=== PATIENT | female | born 1965 ===

== ENCOUNTER 2025-03-04 13:16 | Outpatient (AMB) | payer OTHER, SELFPAY ==
[2025-03-04 13:17] VITALS: BP 130/94; PULSE 79; O2SAT 97; BMI 25.4
--- NOTE | 2025-03-04 13:17 | MHC.OFFVIS ---
Vital Signs 03/04/25 13:17 Height 5 ft 6 in Weight 157 lb 10.088 oz BMI 25.4 BP 130/94 H Blood Pressure Location Lt brachial Position Sitting Pulse 79 Pulse Source Pulse Oximeter Pulse Oximetry (%) 97 Oxygen Delivery Method Room Air Intake Visit Reasons: Parathyroid nodules Intake Note: New patient present today for Parathyroid nodules. Batch Or Continuous Still Operator Required: No Accompanied by: Self / Same As Patient Allergies Sulfa (Sulfonamide Antibiotics) Allergy (Mild, Verified 03/04/25 13:23) Rash Medication List - Last Reconciled 03/04/25 by Loretta Nazario MD No Known Home Meds HPI Comments Details: 60-year-old female here today for initial evaluation of nontoxic multinodular goiter. Found about thyroid nodules on carotid artery scan In May 2024. Ultrasound thyroid: 01/03/2025 done at [facility], I do not have the images but the report notes a left inferior 0.9 X 0.8 X 0.8 cm solid isoechoic nodule with peripheral calcification that has remained stable in size compared to previous ultrasound in June 2024. A hyperechoic nodule 0.6 cm which has also remained stable in size located inferior to the right lobe noted, possibly a parathyroid lesion. Another subcentimeter 0.8 cm hyperechoic nodule located inferior to the left lobe which also may be a parathyroid. These have remained stable in size compared to ultrasound in June 2024. Labs from August 2024 showed normal TSH of 2.82, normal free T4 of 1.19. Patient currently denies heat or cold intolerance, diarrhea or constipation, hair loss, palpitation, anxiety, weight changes, mood changes, low energy, changes in appearance of eyes or vision changes, tremors, increased diaphoresis or dry skin. ? Patient denies any pain on swallowing or voice changes or difficulty breathing. Intermittent dysphagia in the setting of esophageal problems, s/p multiple dilations. Patient denies any history of childhood neck radiation. Denies having ever used lithium, amiodarone or biotin supplements. Patient denies any family history of thyroid cancer . Mother: thyroid nodules, hypothyroidism. 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 No smoking, in the past social 40 years ago Alcohol: weekend wine with dinner No drug use Physical exam General: sitting comfortably in no acute distress HEENT: normocephalic/atraumatic, Neck: supple, symmetrical, no thyromegaly , no dorsocervical or supraclavicular fat pads Cardiac: normal heart sounds Pulm: normal breath sounds B/L, no added breath sounds Abd: not distended, no tenderness Extremities: no edema, no signs of myxedema Neuro: AAO x3, Speech: normal, no facial droop, moving all 4 extremities [facility] Medical History (Updated 03/04/25 @ 13:44 by Loretta Nazario MD) Multinodular goiter (nontoxic) Family History (Updated 03/04/25 @ 13:25 by SABINA Mata) Mother Family history of thyroid problem Congestive heart failure Cancer Diabetes Father No problems noted. Social History Alcohol intake: current Alcohol intake frequency: a few times a week Patient Tobacco Use Status: Never used Tobacco Assessment & Plan Assessment & Plan (1) Multinodular goiter (nontoxic): Code(s): E04.2 - Nontoxic multinodular goiter Category: Medical Plan: 60-year-old female with no family history of thyroid cancer, with no personal history of head or neck radiation who is coming in today to establish care for nontoxic multinodular goiter. She had a carotid artery ultrasound back in May 2024 on which incidentally thyroid nodules were picked up. Ultrasound thyroid: 01/03/2025 done at [facility], I do not have the images but the report notes a left inferior 0.9 X 0.8 X 0.8 cm solid isoechoic nodule with peripheral calcification that has remained stable in size compared to previous ultrasound in June 2024. A hyperechoic nodule 0.6 cm which has also remained stable in size located inferior to the right lobe noted, possibly a parathyroid lesion. Another subcentimeter 0.8 cm hyperechoic nodule located inferior to the left lobe which also may be a parathyroid. These have remained stable in size compared to ultrasound in June 2024. Labs from August 2024 showed normal TSH of 2.82, normal free T4 of 1.19. I explained that it is common to have thyroid nodules. About 95% of the time these nodules are benign. However if the nodule is > 1 cm in size or suspicious on ultrasound then a fine need aspiration biopsy is recommended. At this time I discussed with her that based on the report none of the nodules meet criteria for biopsy. I would like her to repeat an ultrasound in 1 year in January 2026 with follow up after. We will also repeat thyroid labs at that time. Given possible parathyroid enlargement, we will also check calcium, vitamin-D levels around that time. At this point I have asked her to just start taking vitamin-D 1000 units daily. It is not uncommon to see parathyroid enlargement in vitamin-D deficiencies. Plan: -start vitamin-D 1000 units daily, any over the counter brand would do -ordered thyroid ultrasound to be done in January 2026 with follow up in February 2026 -ordered TSH with reflex free T4, calcium, albumin, vitamin-D levels to be done prior to follow up in February 2026 Plan I spent 45 minutes in reviewing the record, seeing the patient and documenting in the medical record. Orders: Orders Albumin Level 01/27/26 E04.2 - Nontoxic multinodular goiter, E55.9 - Vitamin D deficiency, unspecified Vitamin D 25-OH Total 01/27/26 E04.2 - Nontoxic multinodular goiter, E55.9 - Vitamin D deficiency, unspecified US thyroid 01/27/26 E04.2 - Nontoxic multinodular goiter TSH reflex Free T4 01/27/26 E04.2 - Nontoxic multinodular goiter, E55.9 - Vitamin D deficiency, unspecified Calcium 01/27/26 E04.2 - Nontoxic multinodular goiter, E55.9 - Vitamin D deficiency, unspecified Patient Instructions: Do ultrasound of the thyroid in January 2026, someone will call you to schedule this , please make sure it is done a few weeks prior to your next follow up with me Do blood work a few days prior to your next follow up , orders are in Follow up in February 2026 Coding Level of Care Code New Pt Level 4 (66508) Diagnoses Multinodular goiter (nontoxic) E04.2 Time Spent (min) 45
--- OUTSIDE RECORDS SUMMARY | 2025-03-04 13:58 | XMS_ITS | Clinical Summary ---
Author Organization [facility] Address [address] [place] [address] Care Team Providers Care Pipefitter Welder Name Role Phone Ilir Bey MD Primary Care Provider Medications Medication Sig Dispensed Refills Start Date End Date Status albuterol 108 (90 Base) MCG/ACT inhaler Inhale 2 puffs into the lungs every 6 (six) hours as needed for wheezing. 1 each 0 10/24/2023 Active guaiFENesin-codeine (ROBITUSSIN-AC) 100-10 MG/5ML syrup Take 5 mL by mouth 3 (three) times a day as needed for cough. 120 mL 0 10/24/2023 Active Active Problems No known active problems Social History Tobacco Use Types Packs/Day Years Used Date Smoking Tobacco: Never Assessed Sex and Gender Information Value Date Recorded Sex Assigned at Female 08/14/2020 11:09 AM EST Gender Identity Not on file Sexual Orientation Not on file Job Start Date Occupation Industry Not on file Not on file Not on file Last Filed Vital Signs Vital Sign Reading Time Taken Comments Blood Pressure 180/97 10/24/2023 4:23 PM EDT Pulse 80 10/24/2023 4:23 PM EDT Temperature 36.4 C (97.5 F) 10/24/2023 4:23 PM EDT Respiratory Rate 18 10/24/2023 4:23 PM EDT Oxygen Saturation 98% 10/24/2023 4:23 PM EDT Inhaled Oxygen Concentration - - Weight 68 kg (150 lb) 10/24/2023 4:23 PM EDT Height 167.6 cm (5' 6 ) 10/24/2023 4:23 PM EDT Body Mass Index 24.21 10/24/2023 4:23 PM EDT Plan of Treatment Health Maintenance Due Date Last Done Comments Hepatitis C Screening 1965 COVID-19 Vaccine (#1) 1963 Depression Screening 1975 Preventative Health Evaluation 1981 DTap / Tdap / Td (1 - Tdap) 1982 Cervical Cancer Screening (P ap Smear) 01/12/1984 Colon Cancer Screening (Colonoscopy) 01/12/2008 Breast Cancer Screening (Mammogram) 2013 Shingrix-Zoster Vaccine (1 of 2) 2013 Influenza Vaccine (#1) 2025 RSV Adult > 60+ Yrs or Pregn ant (1 - 1-dose 75+ series) 2038 Hepatitis B Vaccines Aged Out No long er eligible based on patient's age to complete this topic Pneumococcal Vaccine Aged Out No long er eligible based on patient's age to complete this topic RSV Ped < 20 months Aged Out No longe r eligible based on patient's age to complete this topic Care Teams Pipefitter Welder Relationship Specialty Start Date End Date Ilir Bey MD [address] [facility] [place] [address] [place], [place] [phone] PCP - General Pharmacy Technician Infusion 01/19/21
--- OUTSIDE RECORDS SUMMARY | 2025-03-04 13:58 | XMS_ITS | Referral Summary ---
Author Organization [facility] Address [address] [place] [address] Care Team Providers Care Livestock Farmer Name Role Phone Jamilah Crowley Primary Care Provider [phone] Encounters Date Type Department Care Team Description 02/22/2025 Telephone [facility] Podiatry [address] [place] [phone] Banking Representative: Adrienne Davison NP PAC- Lc-Reschedule post op 12/31/2024 1:40 PM EDT Follow-Up [facility] Podiatry [address] [place] [phone] Banking Representative: Sherman German DPM Primary localized osteoarthrosis of right ankle and foot (Primary Dx) 12/11/2024 8:40 AM EDT Follow-Up [facility] Podiatry [address] [place] [id number] Banking Representative: Sherman German DPM Ingrown toenail of right foot (Primary Dx) from Last 3 Months Allergies Active Allergy Reactions Criticality Noted Date Comments Sulfa (Sulfonamide Antibiotics) Rash 09/15 Medications benzonatate (TESSALON) 100 mg capsule 09/11/2024 Active codeine-guaiFENe sin (CHERATUSSIN AC) 20-200 mg/10 mL liquid Take 5 mL by mouth 3 times daily as needed. 10/24/2023 Active estradioL (ESTRACE) 0.01 % (0.1 mg/gram) vaginal cream 08/23/2024 Activ e fluticasone propionate (FLONASE) 50 mcg/actuation nasal spray SMARTSI [place](s) Both Nares Daily 09/12/2024 Active hydrOXYzine HCL (ATARAX) 25 mg tablet SMARTSI Tablet(s) By Mouth 3-4 Times Daily 01/20/2024 Active nitrofurantoin monohydrate/macr ocrystals (MACROBID) 100 mg capsule 02/02/2024 Active traZODone (DESYREL) 50 mg tablet 02/02/2024 Active predniSONE (DELTASONE) 10 mg tablet 01/20/2024 Active predniSONE (DELTASONE) 20 mg tablet 09/11/2024 Active Active Problems No known active problems Social History Tobacco Use Types Packs/Day Years Used Date Smoking Tobacco: Never Assessed Comments Unknown Sex and Gender Information Value Date Recorded Sex Assigned at I choose not to answer 05/2025 3:49 PM EST Legal Sex Female 10:45 AM EST Gender Identity Choose not to disclose 3:49 PM EST Sexual Orientation Choose not to disclose 2024 3:49 PM EST Plan of Treatment Upcoming Encounters Date Type Department Care Team (Latest Contact Info) Description 03/13/2025 11:00 AM EDT Appointment [facility] [address] [place] [address] [address] [place] [address] 03/20/2025 11:25 AM EDT Hospital Encounter [facility] Operating Room [address] [place] [phone] Sherman Yi DPM [address] [place], [place] [phone] 03/20/2025 11:25 AM EDT - 03/20/2025 12:50 PM EDT Surgery [facility] Operating Room [address] [place] [phone] Sherman Yi DPM [address] [place] [address] CORRECTION, HALLUX RIGIDUS, WITH CHEILECTOMY, DEBRIDEMENT, AND CAPSULAR RELEASE, WITHOUT IMPLANT [28225 (CPT )] Scheduled Procedures Name Priority Associated Diagnoses Date/Ti nd CORRECTION, HALLUX RIGIDUS, WITH CHEILECTOMY, DEBRIDEMENT, AND CAPSULAR RELEASE, WITHOUT IMPLANT Primary localized osteoarthrosis of right ankle and foot 03/20/2025 11:25 AM EDT Goals Goal Patient Goal Type Associated Problems Recent Progress Patient-Stated? Author Autogenera angelica Goal Care Plan Autogenerated Problem No Optime Background User Procedures * Due to [place] TEAM INTERVAL law, this organization might not be sharing negative HIV tests. Procedure Name Priority Date/Time Associated Diagnosis Comments SC ARTHROCENTESIS ASPIR&/INJ SMALL JT/BURSA W/O US Routine 12/31/2024 1:40 PM EDT Primary localized osteoarthrosis of right ankle and foot SC REMOVAL OF NAIL BED Routine 8:40 AM EDT Ingrown toenail of right foot from Last 3 Months Results * Due to [place] law, this organization might not be sharing negative HIV tests. * SC ARTHROCENTESIS ASPIR&/INJ SMALL JT/BURSA W/O US (12/31/2024 1:40 PM EDT) Sherman Jameson DPM - 12/31/2024 1:40 PM EDT Sherman Yi DPM 12/31/2024 1:41 PM Small Joint and Soft Tissue Injection Indication(s): Chronic osteoarthritis pain Date/Time: 12/31/2024 1:40 PM Performed by: Sherman Yi DPM Authorized by: Sherman Yi DPM Consent: Patient identity confirmed: Name and with patient and Verbally Verbal consent obtained: Yes Written consent obtained: Yes Risk and benefits discussed: Yes Written informed consent was obtained from the patient. Patient states understanding of procedure being performed: Yes Patient's understanding of procedure matches consent: Yes Rutledge Protocol: Procedure consent matches procedure scheduled: Yes All relevant documents/tests are correctly identified, labeled, and matched to patient: Yes Relevant tests/ Imaging studies available/reviewed: Yes Correct site marked: Yes Required blood products, implants, devices and special equipment available: Yes Immediately prior to the procedure a time out was called: Yes An attending physician was present for the procedure OR the procedure was performed by an Advanced Practice Provider: Yes Procedure Details: Site One: Location: foot Topical Anesthetic: ethyl chloride (cold spray) Syringe Size: 3 mL 4 mg methylPREDNISolone acetate 40 mg/mL; 10 mg triamcinolone acetonide 40 mg/mL Dressing: Band-Aid Post-procedure Details: Patient tolerance: patient tolerated the procedure well with no immediate complications Instructions: post-procedure instructions were reviewed Discharge: patient discharged from clinic in stable condition Sherman Yi DPM IN CLINIC/BEDSIDE ORDERABLES Final Result * SC REMOVAL OF NAIL BED (12/11/2024 8:40 AM EDT) Sherman Jameson DPM - 12/11/2024 8:40 AM EDT Sherman Yi DPM 12/11/2024 9:16 AM Nail Removal: R big toe Indication(s): Ingrowning with infection Date/Time: 12/11/2024 8:40 AM Performed by: Sherman Yi DPM Authorized by: Sherman Yi DPM Consent: Patient identity confirmed: Name and with patient and Verbally Verbal consent obtained: Yes Written consent obtained: Yes Risk and benefits discussed: Yes Written informed consent was obtained from the patient. Patient states understanding of procedure being performed: Yes Patient's understanding of procedure matches consent: Yes Rutledge Protocol: Procedure consent matches procedure scheduled: Yes All relevant documents/tests are correctly identified, labeled, and matched to patient: Yes Relevant tests/ Imaging studies available/reviewed: Yes Correct site marked: Yes Required blood products, implants, devices and special equipment available: Yes Immediately prior to the procedure a time out was called: Yes An attending physician was present for the procedure OR the procedure was performed by an Advanced Practice Provider: Yes Procedure Details: Location: right foot Site Prep: Betadine Topical Anesthetic: ethyl chloride (cold spray) Local Anesthetic: 3 mL lidocaine PF 1% (10 mg/mL) Hemostasis: tourniquet Amount removed: partial Side: tibial Wedge excision of skin of nail fold: no wedge excision of skin of nail fold Destruction Method: chemical matrixectomy Nail bed sutured: nail bed not sutured Nail matrix removed: partial Removed nail replaced and anchored: removed nail not replaced and anchored Estimated blood loss: minimal Dressing: bacitracin, adaptic, sterile gauze and coban. Patient tolerance: patient tolerated the procedure well with no immediate complications Post-procedure Details: Patient tolerance: patient tolerated the procedure well with no immediate complications Instructions: post-procedure instructions were reviewed Discharge: patient discharged from clinic in stable condition us Sherman Yi DPM IN CLINIC/BEDSIDE ORDERABLES Final Result from Last 3 Months Additional Health Concerns Active Problems Noted Date Diagnosed Date Autogenerated Problem 02/18/2025 Insurance Care Teams Livestock Farmer Relationship Specialty Start Date End Date Jamilah Crowley [address] [place] [address] [place] [address] PCP - General Internal Medicine 09/07/24
--- OUTSIDE RECORDS SUMMARY | 2025-03-04 13:58 | XMS_ITS | Clinical Summary ---
Author Organization [facility] and [facility] [place] Address [address] [place] [address] Phone Care Team Providers Care Operational Review Sergeant Name Role Phone Ilir Bey MD Primary Care Provider [phone] Allergies Active Allergy Reactions Criticality Noted Date Comments Sulfa (Sulfonamide Antibiotics) 10/14 Medications fluticasone propionate (FLONASE) 50 mcg/actuation nasal spray Administer 1 spray into each nostril 2 (two) times a day. Shake gently. Before first use, prime pump. After use, clean tip and replace cap. 16 g 4 Active albuterol HFA (PROAIR HFA ; PROVENTIL HFA ; VENTOLIN HFA) 90 mcg/actuation inhaler Inhale 2 puffs by mouth every 4 (four) hours if needed. 5 Active predniSONE (DELTASONE) 20 mg tablet Take 1 tablet (20 mg total) by mouth 1 (one) time each day. 5 Active Active Problems Problem Noted Date Diagnosed Date Family history of premature CAD 12/20/2024 Assessment & Plan (12/20/2024 10:52 AM EDT): She denies any anginal symptoms as outlined above. Patient had a stress echocardiogram in July 2024 which was negative for any evidence of ischemia. Instructed to call 911 or go to the emergency room should the patient begin to experience chest pain or pressure lasting greater than 10 minutes does not resolve with rest. Primary hypertension 06/18/2024 Assessment & Plan (12/20/2024 10:52 AM EDT): Mildly elevated during today's exam with a reading of 136/70. The patient is not on any antihypertensive medications. We did discuss diet and lifestyle modification specifically reducing her sodium intake as she does admit to increased amounts. At this time she will be more mindful of her diet and continue with her routine exercise. Encounters Date Type Department Care Team Description 12/20/2024 10:40 AM EDT Office Visit [facility] [address] [place] [address] Bobbi Adams NP Chest pain, unspecified type (Primary Dx); Primary hypertension; Family history of premature CAD from Last 3 Months Surgical History Surgery Date Site/Laterality Comments OTHER SURGICAL HISTORY 2005 PROCEDURE: DILATE ESOPHAGUS Medical History Medical History Date Comments Bacterial pneumonia, unspecified DX:Bacterial pneumonia, unspecified Primary hypertension 06/18/2024 Family History Medical History Relation Name Comments Hypertension Brother 1 Breast cancer Mother 72y diagnosed at a ge 70 Diabetes Mother 72y Hypertension Mother 72y Breast cancer Mother's side cousin Breast cancer Other mat aunt Hypertension Sister 1 Colon polyps Sister 2 Colon cancer Uncle Relation Name Status Comments Brother 1 Brother 2 Alive Father Maternal Grandfather Maternal Grandmother Mother 72y Mother's side cousin Alive Other mat aunt Paternal Grandfather Paternal Grandmother Sister 1 Sister 2 Sister 3 Alive Sister 4 Alive Son 1 Alive Son 2 Alive Uncle Social History Tobacco Use Types Packs/Day Years Used Date Smoking Tobacco: Never Smokeless Tobacco: Never Tobacco Cessation:Counseling Given: Not Answered Alcohol Use Standard Drinks/Week Comments Yes 0 (1 standard drink = 0.6 oz pur e alcohol) wine on occasion Comments Unknown Sex and Gender Information Value Date Recorded Sex Assigned at Not on file Legal Sex Female 5:36 PM EST Gender Identity Not on file Sexual Orientation Not on file Obstetrics History Last Filed Vital Signs Vital Sign Reading Time Taken Comments Blood Pressure 136/70 12/20/2024 10:29 AM EDT Pulse 68 12/20/2024 10:29 AM EDT Temperature 36.8 C (98.2 F) 10/16/2023 8:55 AM EST Respiratory Rate 18 10/16/2023 8:55 AM EST Oxygen Saturation 98% 12/20/2024 10:29 AM EDT Inhaled Oxygen Concentration - - Weight 74.4 kg (164 lb) 12/20/2024 10:29 AM EDT Height 167.6 cm (5' 6 ) 12/20/2024 10:29 AM EDT Body Mass Index 26.47 12/20/2024 10:29 AM EDT Plan of Treatment Upcoming Encounters Date Type Department Care Team (Late st Contact Info) Description 04/17/2025 9:00 AM EDT Appointment Radiology Department - [address] [id number] Health Maintenance Due Date Last Done Comments COVID-19 Vaccine (#1) 01/12/1968 DTaP,Tdap,and Td Vaccines (1 - Tdap) 1982 Pneumococcal Vaccine: 50+ Years (1 of 2 - PCV) 1982 Zoster Vaccines (1 of 2) 1982 Cervical Cancer Screening: Pap Smear 07/15/2020 07/15/2017, 07/15/2017 Cholesterol Screening (Lipid Panel) 07/23/2022 HIV Screening 07/23/2022 Hepatitis C Screening 07/23/2022 Social Influencers of Health Screening 07/23/2022 Colorectal Cancer Screening: Colonoscopy 04/19/2024 04/19/2014 Depression Screening 08/15/2024 Hypertension/CHF/CAD Annual BMP Blood Test 10/23/2024 10/24/2023, 10/24/2023, 10/24/2023, Additional history exists Influenza Vaccine (#1) 2025 Breast Cancer Screening 04/09/2026 04/09/20 24, 04/09/2024, 04/06/2023, Additional history exists RSV Immunization Adult Patients (1 - 1-dose 75+ series) 2038 HIB Vaccines Aged Out No longer eligi ble based on patient's age to complete this topic HPV Vaccines Aged Out No longer eligi ble based on patient's age to complete this topic Hepatitis A Vaccines Aged Out No long er eligible based on patient's age to complete this topic Hepatitis B Vaccines Aged Out No long er eligible based on patient's age to complete this topic IPV Vaccines Aged Out No longer eligi ble based on patient's age to complete this topic MMR Vaccines Aged Out No longer eligi ble based on patient's age to complete this topic Meningococcal ACWY Vaccine Aged Out N o longer eligible based on patient's age to complete this topic Meningococcal B Vaccine Aged Out No l onger eligible based on patient's age to complete this topic RSV Immunization Patients Under 20 months Aged Out No longer eligible based on patient's age to complete this topic Varicella Vaccines Aged Out No longer eligible based on patient's age to complete this topic Procedures Procedure Name Priority Date/Time Associated Diagnosis Comments ECG 12-LEAD Routine 12/20/2024 10:52 AM EDT Chest pain, unspecified type SCREENING MAMMOGRAPHY BI 2-VIEW BREAST INC CAD Routine 04/09/2024 4:24 PM EDT Encounter for other screening for malignant neoplasm of breast ANNUAL BMP BLOOD TEST Routine 10/24/2023 HPV Routine 07/15/2017 COLONOSCOPY Routine 04/19/2014 from Last 3 Months or Most Recently Relevant to Health Maintenance Results * ECG 12 lead (12/20/2024 10:52 AM EDT) Ventricular Rate ECG 68 BPM GEMUSE Atrial Rate 68 BPM GEMUSE P-R Interval 168 ms GEMUSE QRS Duration 76 ms GEMUSE Q-T Interval 394 ms GEMUSE QTc 418 ms GEMUSE P Wave [place] 39 degrees GEMUSE R [place] 59 degrees GEMUSE T [place] 35 degrees GEMUSE ECG Interpretation Normal sinus rhythm Possible Left atrial enlargement Nonspecific ST abnormality Abnormal ECG When compared with ECG of 13-JUN-2024 14:21, T wave inversion now evident in Anterior leads Confirmed by MD Fam, Jordy ([id number]) on 12/20/2024 12:37:05 PM GEMUSE 12/20/2024 10:3 6 AM EDT 12/20/2024 12:37 PM EDT us Bobbi Adams NP ECG ORDERABLES Edited Result - Final GEMUSE * SCREENING MAMMOGRAPHY BI 2-VIEW BREAST INC CAD (04/09/2024 4:24 PM EDT) Anatomical Region Laterality Modality Radiographic Dee ging 04/06/2023 2:48 PM EDT Narrative 04/10/2024 6:42 PM EDT This is a summary report. The complete report is available in the patient's medical record. If you cannot access the medical record, please contact the sending organization for a detailed fax or copy. BILATERAL 3D DIGITAL SCREENING MAMMOGRAM History: Routine screening. No current breast complaints. Family history of breast cancer in mother Comparison: Multiple priors dating back to 03/19/2021 Technique: Bilateral full-field digital 3D mammography was performed using standard CC and MLO projections CAD was used to evaluate this mammogram. Findings: Density: There are scattered areas of fibroglandular density-B RIGHT: No suspicious masses, groups of microcalcification or areas of architectural distortion identified. Stable typically benign parenchymal asymmetries LEFT: No suspicious masses, groups of microcalcifications or areas of architectural distortion identified. Stable typically benign parenchymal asymmetries IMPRESSION: : 1. No mammographic evidence of malignancy. BI-RADS Category 2 benign findings Recommendation: Routine annual screening mammography is recommended Procedure Note Rhiannon Yo MD - 07/09/2024 This is a summary report. The complete report is available in thepatient's medical record. If you cannot access the medical record, pleasecontact the sending organization for a detailed fax or copy. BILATERAL 3D DIGITAL SCREENING MAMMOGRAM History: Routine screening. No current breast complaints. Family historyof breast cancer in mother Comparison: Multiple priors dating back to 03/19/2021 Technique: Bilateral full-field digital 3D mammography was performed usingstandard CC and MLO projections CAD was used to evaluate this mammogram. Findings: Density: There are scattered areas of fibroglandular density-B RIGHT: No suspicious masses, groups of microcalcification or areas ofarchitectural distortion identified. Stable typically benign parenchymalasymmetries LEFT: No suspicious masses, groups of microcalcifications or areas ofarchitectural distortion identified. Stable typically benign parenchymalasymmetries IMPRESSION: : 1. No mammographic evidence of malignancy. BI-RADS Category 2 benign findings Recommendation: Routine annual screening mammography is recommended Ilir Bey MD IMG XR PROCEDURES Final R esult * Annual BMP Blood Test (10/24/2023) Pathologist [facility] Annual BMP Blood Test abstracted Historical Provider HEALTH MAINTENANCE Final Result * Cervical Cancer Screening: HPV (07/15/2017) Pathologist [facility] Cervical Cancer Screening: HPV negative, abstracted Historical Provider HEALTH MAINTENANCE Final Result * Colonoscopy (04/19/2014) Pathologist [facility] Colonoscopy no in terpretation, abstracted Anatomical Region Laterality Modality Other Historical Provider HEALTH MAINTENANCE Final Result from Last 3 Months or Most Recently Relevant to Health Maintenance Insurance [facility] Care Teams Operational Review Sergeant Relationship Specialty Start Date End Date Ilir Bey MD [place] [address] PCP - General Internal Medicine 06/08/24
--- OUTSIDE RECORDS SUMMARY | 2025-03-04 13:59 | XMS_ITS ---
Author Name [facility] Organization Unknown Results Test Name/Text Value Interpretation Date Range Source RSV RNA Nph Ql HEMALATHA+non-probe NEGATIVE Normal 10/24/2023 [facility] Service [facility] XXX-Imp Cepheid GeneXpert (RT-PCR) [facility] Normal 10/24/2023 [facility] FLUBV RNA Nph Ql HEMALATHA+non-probe NEGATIVE Normal 10/24/2023 [facility] FLUAV RNA Nph Ql HEMALATHA+non-probe NEGATIVE Normal 10/24/2023 [facility] SPECIMEN SOURCE XXX NASOPHARYNGEAL Normal 10/24/2023 [facility] Troponin I SerPl HS-mCnc 4.0 ng/L Normal 10/24/2023 0 - 14 [facility] CALCIUM SERPL MCNC 9.9 mg/dL Normal 10/24/2023 8.4 - 10.2 [facility] CHLORIDE SERPL SCNC 100.0 mmol/L Normal 10/24/2023 98 - 107 [facility] BUN SERPL MCNC 18.0 mg/dL Above high normal 10/24/2023 7 - 1 7 [facility] SODIUM SERPL SCNC 138.0 mmol/L Normal 10/24/2023 135 - 14 5 [facility] HCO3 SER SCNC 29.0 mmol/L Normal 10/24/2023 24 - 32 [facility] GLUCOSE SERPL MCNC 100.0 mg/dL Normal 10/24/2023 70 - 199 [facility] Glomerular filtration rate/1.73 sq M. predicted 73.0 Normal 10/24/2023 60 - [facility] CREAT SERPL MCNC 0.9 mg/dL Normal 10/24/2023 0.5 - 1 [facility] POTASSIUM SERPL SCNC 3.9 mmol/L Normal 10/24/2023 3.5 - 5.1 [facility] ANION GAP SERPL SCNC 9.0 mmol/L Normal 10/24/2023 5 - 14 [facility] BNP BLD MCNC 13.0 pg/mL Normal 10/24/2023 0 - 100 [facility] MAGNESIUM SERPL MCNC 2.2 mg/dL Normal 10/24/2023 1.7 - 2.8 [facility] MCH RBC QN AUTO 31.2 pg Normal 10/24/2023 25 - 33 [facility] EOSINOPHIL NFR BLD AUTO 2.0 % Normal 10/24/2023 0 - 6 [facility] IMMATURE GRANULOCYTE, ABSOLUTE 0.07 k/uL Normal 10/24/2023 - 0.1 [facility] EOSINOPHIL NO. BLD AUTO 0.2 K/uL Normal 10/24/2023 0 - 0.5 [facility] MONOCYTES NO. BLD AUTO 0.7 K/uL Normal 10/24/2023 0 - 0.8 [facility] NEUTROPHILS NFR BLD AUTO 61.4 % Normal 10/24/2023 44 - 74 [facility] MCV RBC AUTO 91.6 fL Normal 10/24/2023 78 - 100 [facility] H PLATELET NO. BLD AUTO 454.0 K/uL Above high normal 10/24/2023 150 - 450 [facility] MONOCYTES NFR BLD AUTO 9.7 % Normal 10/24/2023 2 - 12 [facility] RDW RBC AUTO RTO 14.1 % Normal 10/24/2023 12.1 - 16.2 [facility] BASOPHILS NFR BLD AUTO 0.7 % Normal 10/24/2023 0 - 2 [facility] BASOPHILS IN BLOOD BY AUTOMATED COUNT 0.1 K/uL Normal 10/24/2023 0 - 0.2 [facility] NUCLEATED RBC 0.0 % Normal 10/24/2023 0 - 1 [facility] RBC NO. BLD AUTO 4.75 M/uL Normal 10/24/2023 4.2 - 5.4 [facility] LYMPHOCYTES NFR BLD AUTO 25.3 % Normal 10/24/2023 20 - 48 [facility] NEUTROPHILS NO. BLD AUTO 4.5 K/uL Normal 10/24/2023 1.8 - 7.8 [facility] MCHC RBC AUTO MCNC 34.0 g/dL Normal 10/24/2023 32 - 36 [facility] WBC NO. BLD AUTO 7.4 K/uL Normal 10/24/2023 4 - 10.5 CT [facility] IMMATURE GRANULOCYTE, PERCENT 0.9 % Normal 10/24/2023 0 - 1 [facility] PMV BLD AUTO 9.8 fL Normal 10/24/2023 7.4 - 11.4 [facility] HGB BLD MCNC 14.8 g/dL Normal 10/24/2023 12.5 - 16 [facility] HCT VFR BLD AUTO 43.5 % Normal 10/24/2023 37 - 47 [facility] LYMPHOCYTES NO. BLD AUTO 1.9 K/uL Normal 10/24/2023 1 - 3.2 [facility] Problems Problem Status Onset Date Problem Type Date of Resoluti on Source Bronchitis active EncounterDiagnosisAct [facility] Encounters Encounter Type Encounter Reason Primary Diagnosis Location Date Emergency Bronchitis, not specified as acute or chronic Bronchitis, not specified as acute or chronic [facility] 10/24/2023 Care Team Organization Name Specialty Phone Email Start Date End Da te [facility] 0 10/25/2023 02/26/2025 [facility] 2023
== END 2025-03-04 13:49 | disposition home or self-care (01) ==
LOC: HO.ENCR 13:16
PROVIDERS: PCP Nurse Practitioner Family; Visit Provider Student in an Organized Health Care Education/Training Program
DX: E04.2 Nontoxic multinodular goiter (principal)
CPT/HCPCS: 99204